=== PATIENT | female | born 1965 | race Caucasian/White ===

== ENCOUNTER 2018-08-30 16:32 | Emergency (ER) | payer BC ==
[~2018-08-30] VITALS: Ht 170.2 cm; Wt 86.2 kg
[2018-08-30] MEDS ORDERED: CELLCEPT500 MG (17:34)
[2018-08-30] MEDS ORDERED: PROGRAF1 MG (17:34)
== END 2018-08-30 20:00 | disposition home or self-care (01) ==
LOC: ER 16:32
DX: J02.9 Acute pharyngitis, unspecified (principal); R51 Headache